=== PATIENT | male | born 1955 | race Caucasian/White ===

== ENCOUNTER 2019-07-14 09:49 | Emergency (ER) | payer OTHER ==
--- NOTE | 2019-07-14 10:24 | RAD ---
Portable chest: HISTORY: Bradycardia. COMPARISON: none FINDINGS: Lung strong are clear. Heart and mediastinum appear unremarkable. Vascularity is normal. Visualized osseous structures unremarkable. IMPRESSION: No acute finding
== END 2019-07-14 11:28 | disposition home or self-care (01) ==
LOC: ERS 09:49
DX: I49.3 Ventricular premature depolarization (principal); M10.9 Gout, unspecified; I10 Essential (primary) hypertension; E78.5 Hyperlipidemia, unspecified; E78.00 Pure hypercholesterolemia, unspecified; F17.210 Nicotine dependence, cigarettes, uncomplicated; Z79.899 Other long term (current) drug therapy
CPT/HCPCS: 71045; 93005